=== PATIENT | female | born 1995 | race African-American/Black ===

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

== ENCOUNTER 2017-04-14 19:39 | Emergency (ER) | payer OTHER ==
[~2017-04-14] VITALS: Ht 157.5 cm; Wt 58.6 kg
[~2017-04-14 19:39] MED LIST changes: +IBUP1TAB7 PO; -IBUP800T23 PO; +MOME17I EACH NARE
[2017-04-14 19:40] VITALS: BP 113/58; PULSE 93; RESP 18; TEMP 99.1; O2SAT 99
--- NOTE | 2017-04-14 20:05 | PD ---
HPI Chief Complaint: Skin Problem Time Seen by Provider: 19:57 Travel History International Travel<30 days: No Contact w/Intl Traveler<30days: No Traveled to known affect area: No History of Present Illness HPI 20-year-old female presents to the emergency department with a generalized rash for the last 2-3 days, with worsening. Denies fever, vomiting. Rash is itchy and painful. Denies new detergents, soaps, lotions, perfumes, foods, medications, environmental exposures. Denies airway edema, shortness of breath , difficulty breathing. Symptoms are mild in severity. No one else with similar symptoms. Has not taken any medication return treatment to alleviate her symptoms. No known aggravating or relieving factors. No known allergies. Denies significant past medical history. No primary care provider. Has no other medical complaints. No other modifying factors or associated signs and symptoms. PFSH Past Medical History Hx Anticoagulant Therapy: No Cardiovascular Problems: No Chemotherapy: No Cerebrovascular Accident: No Diabetes: No Diminished Hearing: No Respiratory: No ?: Not LMP: 03/29/2017 Past Surgical History Hysterectomy: No Social History Alcohol Use: No Tobacco Use: No Substance Use: No Allergies-Medications (Allergen,Severity, Reaction): Coded Allergies: No Known Allergies (Unverified , 06/17/16) Reported Meds & Prescriptions Reported Meds & Active Scripts Active Ibuprofen 800 Mg Tab 800 Mg PO Q8H PRN Bactrim DS (Sulfamethoxazole-Trimethoprim) 800-160 Mg Tab 1 Tab PO BID 10 Days Deltasone (Prednisone) 20 Mg Tab 40 Mg PO DAILY 4 Days start 04/15/2017 Nasonex Nasal [place] (Mometasone Furoate) 50 Mcg/Act Naspr 2 [place] EACH NARE DAILY PRN Ibuprofen 800 Mg Tab 800 Mg PO Q6HR PRN Review of Systems Except as stated in HPI: all other systems reviewed are Neg Physical Exam Narrative GENERAL: Well-nourished, well-developed black female patient, in no acute distress; afebrile, nontoxic-appearing SKIN: Warm and dry. Generalized large and small areas of maculopapular rash to back, abdomen, bilateral upper extremity, bilateral lower extremities. No cellulitic process noted. HEAD: Atraumatic. Normocephalic. EYES: Pupils equal and round. No scleral icterus. No injection or drainage. ENT: Mucosa pink and moist. No erythema or exudates. No uvular edema. No uvular , palatal, or tonsillar deviation. Airway patent. EARS: Bilateral pinnae and external canals appear within normal limits. NECK: Trachea midline. No lymphadenopathy. CARDIOVASCULAR: Regular rate RESPIRATORY: No accessory muscle use. No audible wheezing or stridor. GASTROINTESTINAL: Flat. MUSCULOSKELETAL: No obvious deformities. No clubbing. No cyanosis. No edema. NEUROLOGICAL: Awake and alert. Oriented 3. No obvious cranial nerve deficits. Motor grossly within normal limits. Normal speech. Moves all extremities. 5/5 strength to all extremities. PSYCHIATRIC: Appropriate mood and affect; insight and judgment normal. Data Data Last Documented VS Vital Signs Date Time Temp Pulse Resp B/P (MAP) Pulse Ox O2 Delivery O2 Flow Rate FiO2 04/14/17 20:14 04/14/17 19:40 99.1 93 18 99 Room Air Orders Orders Prednisone (Deltasone) (04/14/17 20:15) Ibuprofen (Motrin) (04/14/17 20:15) Ed Discharge Order (04/14/17 20:08) [facility] Medical Decision Making Medical Screen Exam Complete: Yes Emergency Medical Condition: Yes Medical Record Reviewed: Yes Differential Diagnosis Contact dermatitis, bedbugs, hives, nonspecific rash Narrative Course 21-year-old female with rash and nonspecific skin eruption. Patient is afebrile and nontoxic-appearing. Denies fever, vomiting. Denies airway edema, difficulty breathing, shortness of breath. Rash is itchy and painful. There is an area to the right forearm which appears with possible infection. Deltasone and ibuprofen administered in the ER. Deltasone, ibuprofen, Bactrim prescribed for home. Instructed patient to take Benadryl as directed and as needed for rash/itching. Patient to follow-up with dermatology. Instructed patient to follow up with primary care provider. Patient verbalizes understanding and agreement with treatment plan. Patient is medically cleared and stable for discharge. Discussed reasons to return to the emergency department. Patient agrees with treatment plan. The patients vital signs are stable and the patient is stable for outpatient follow-up and treatment. Patient discharged home, stable and in no acute distress. Diagnosis Primary Impression: Rash and nonspecific skin eruption Referrals: [facility] Isotope Technician Primary Care Physician Patient Instructions: Acute Rash (ED), Bed Bugs (ED), General Instructions, Insect Bite or Sting (ED) Additional Instructions: Antibiotics as prescribed Take oral steroids as prescribed [id number] topicals to reduce itch Benadryl as directed and as needed to reduce itch Follow-up with your primary care provider Follow-up with dermatology Return to the emergency department immediately with worsening of symptoms Med/Other Pt SpecificInfo: Prescription(s) given Scripts Ibuprofen (Ibuprofen) 800 Mg Tab 800 MG PO Q8H Y for PAIN SCALE 1 TO 10, #20 TAB 0 Refills Prov: Tayolr Lemus 04/14/17 Sulfamethoxazole-Trimethoprim (Bactrim DS) 800-160 Mg Tab 1 TAB PO BID for Infection for 10 Days, #20 TAB 0 Refills Prov: Taylor Lemus 04/14/17 Prednisone (Deltasone) 20 Mg Tab 40 MG PO DAILY for 4 Days, #8 TAB 0 Refills start 04/15/2017 Prov: Taylor Lemus 04/14/17 Disposition: 01 DISCHARGE HOME Condition: Stable Taylor Lemus Apr 14, 2017 20:05
[2017-04-14] MEDS ORDERED: BACT800T5 PO (20:07)
[2017-04-14] MEDS ORDERED: PRED-503 PO (20:07)
[2017-04-14] MEDS ORDERED: IBUP1TAB7 PO (20:07)
[2017-04-14] MEDS ORDERED: predniSONE 20 MG TAB PO ONE (20:15)
[2017-04-14] MEDS ORDERED: IBUPROFEN 800 MG TAB PO ONE (20:15)
== END 2017-04-14 20:21 | disposition home or self-care (01) ==
LOC: NEPK 19:39
DX: R21 Rash and other nonspecific skin eruption (principal)
CPT/HCPCS: 99284; J7512

== ENCOUNTER 2017-05-10 19:48 | Emergency (ER) | payer OTHER ==
[~2017-05-10 19:48] MED LIST changes: +BACT800T5 PO; +PRED-503 PO
[2017-05-10 19:50] VITALS: BP 148/74; PULSE 82; RESP 16; TEMP 98.5; O2SAT 100
--- NOTE | 2017-05-10 20:59 | PD ---
HPI Chief Complaint: Musculoskeletal Complaint Time Seen by Provider: 20:44 Travel History International Travel<30 days: No Contact w/Intl Traveler<30days: No Traveled to known affect area: No History of Present Illness HPI 21-year-old black female presents from her department with complaints of bilateral hand pain as well as foot pain. Patient states that she's been having pain now for the past week. It seemed to have started in both of her little fingers and palms. It is now encompassed both of her hands. She states the pain is worse when she bends and moves. She has also had some intermittent pain in both feet. She denies any trauma. No recent illness. No fever chills. She does complain some tingling. No sensory loss. She been using Biofreeze with some temporary relief. She states that ibuprofen and Tylenol does not seem to help. Patient reports a family history of arthritis. Was recently treated approximately one month ago by a manometer technician for a rash. No other recent illnesses . PFSH Past Medical History Medical History: Denies Significant Hx Hx Anticoagulant Therapy: No Cardiovascular Problems: No Chemotherapy: No Cerebrovascular Accident: No Diabetes: No Diminished Hearing: No Respiratory: No Immunizations Current: Yes Tetanus Vaccination: < 5 Years Influenza Vaccination: Yes ?: Unknown LMP: 04/29/17 : 0 Past Surgical History Hysterectomy: No Other Surgery: Yes (BIOPSY RIGHT BREAST) Social History Alcohol Use: No Tobacco Use: No Substance Use: No Allergies-Medications (Allergen,Severity, Reaction): Coded Allergies: No Known Allergies (Unverified , 06/17/16) Reported Meds & Prescriptions Reported Meds & Active Scripts Active Ibuprofen 800 Mg Tab 800 Mg PO Q6HR PRN Review of Systems Except as stated in HPI: all other systems reviewed are Neg Physical Exam Narrative GENERAL: This is a well-nourished, well-developed patient, in no apparent distress. SKIN: No rashes, ecchymoses or lesions. Warm and dry. HEAD: Atraumatic. Normocephalic. EYES: PERRL, EOMI, no discharge or injection. No scleral icterus. EARS: Clear NOSE: Nasal turbinates appear normal. THROAT: Mucosa pink and moist. Airway patent. NECK: Trachea midline. supple, moves head freely. LUNGS: Clear to auscultation. CV: Regular in rhythm. ABDOMEN: Soft nontender. EXT: No clubbing cyanosis or edema. I see no obvious deformities. She is able to extend and flex her finger freely. There is no edema, erythema or warmth. The skin is intact. Nail beds are intact and normal-appearing. There is no acute sensory loss. She complains of pain with movement. She has intact median /ulnar/radial nerves. Patient's hands and feet appear unremarkable. Data Data Last Documented VS Vital Signs Date Time Temp Pulse Resp B/P (MAP) Pulse Ox O2 Delivery O2 Flow Rate FiO2 05/10/17 19:50 98.5 82 16 148/74 (98) 100 Room Air Orders Orders Complete Blood Count With Diff (05/10/17 20:49) Basic Metabolic Panel (Bmp) (05/10/17 20:49) [place] Sedimentation Rate (05/10/17 20:49) Labs Laboratory Tests Test 05/10/17 21:00 White Blood Count 7.5 TH/MM3 Red Blood Count 3.99 MIL/MM3 Hemoglobin 12.0 GM/DL Hematocrit 35.0 % Mean Corpuscular Volume 87.6 FL Mean Corpuscular Hemoglobin 30.1 PG Mean Corpuscular Hemoglobin Concent 34.4 % Red Cell Distribution Width 14.4 % Platelet Count 352 TH/MM3 Mean Platelet Volume 7.1 FL Neutrophils (%) (Auto) 44.2 % Lymphocytes (%) (Auto) 43.1 % Monocytes (%) (Auto) 8.3 % Eosinophils (%) (Auto) 3.0 % Basophils (%) (Auto) 1.4 % Neutrophils # (Auto) 3.3 TH/MM3 Lymphocytes # (Auto) 3.3 TH/MM3 Monocytes # (Auto) 0.6 TH/MM3 Eosinophils # (Auto) 0.2 TH/MM3 Basophils # (Auto) 0.1 TH/MM3 CBC Comment DIFF FINAL Differential Comment Erythrocyte Sedimentation Rate 22 mm/hr Blood Urea Nitrogen 14 MG/DL Creatinine 0.81 MG/DL Random Glucose 94 MG/DL Calcium Level 8.8 MG/DL Sodium Level 141 MEQ/L Potassium Level 3.8 MEQ/L Chloride Level 107 MEQ/L Carbon Dioxide Level 26.3 MEQ/L Anion Gap 8 MEQ/L Estimat Glomerular Filtration Rate 110 ML/MIN MDM Medical Decision Making Medical Screen Exam Complete: Yes Emergency Medical Condition: Yes Medical Record Reviewed: Yes Interpretation(s) Laboratory Tests Test 05/10/17 21:00 White Blood Count 7.5 TH/MM3 Red Blood Count 3.99 MIL/MM3 Hemoglobin 12.0 GM/DL Hematocrit 35.0 % Mean Corpuscular Volume 87.6 FL Mean Corpuscular Hemoglobin 30.1 PG Mean Corpuscular Hemoglobin Concent 34.4 % Red Cell Distribution Width 14.4 % Platelet Count 352 TH/MM3 Mean Platelet Volume 7.1 FL Neutrophils (%) (Auto) 44.2 % Lymphocytes (%) (Auto) 43.1 % Monocytes (%) (Auto) 8.3 % Eosinophils (%) (Auto) 3.0 % Basophils (%) (Auto) 1.4 % Neutrophils # (Auto) 3.3 TH/MM3 Lymphocytes # (Auto) 3.3 TH/MM3 Monocytes # (Auto) 0.6 TH/MM3 Eosinophils # (Auto) 0.2 TH/MM3 Basophils # (Auto) 0.1 TH/MM3 CBC Comment DIFF FINAL Differential Comment Erythrocyte Sedimentation Rate 22 mm/hr Blood Urea Nitrogen 14 MG/DL Creatinine 0.81 MG/DL Random Glucose 94 MG/DL Calcium Level 8.8 MG/DL Sodium Level 141 MEQ/L Potassium Level 3.8 MEQ/L Chloride Level 107 MEQ/L Carbon Dioxide Level 26.3 MEQ/L Anion Gap 8 MEQ/L Estimat Glomerular Filtration Rate 110 ML/MIN Differential Diagnosis Differential diagnosis: Osteoarthritis, autoimmune arthritis, inflammatory arthritis, electrolyte abnormality, pituitary disease Narrative Course Patient is resting comfortable. Patient's sedimentation rate is 22. CBC and chemistry unremarkable. Patient is informed of her laboratory findings. Etiology of her complaint of arthralgias are not clear. She'll be given prescription for prednisone and advised to follow-up with the clinic at school. Patient is given prednisone 40 mg by mouth. This is arthralgias Diagnosis Primary Impression: Arthralgia Qualified Codes: M25.50 - Pain in unspecified joint Patient Instructions: General Instructions Additional Instructions: Rest. Elevation. Prednisone. They also take additional Tylenol or ibuprofen for pain. Follow-up with the clinic at school or next 1-2 days for recheck. Consider follow-up with a paper sorter. Return to the ER for emergencies. Med/Other Pt SpecificInfo: Prescription(s) given Disposition: 01 DISCHARGE HOME Condition: Stable Stan Madrid May 10, 2017 20:59
[2017-05-10 21:30] LABS: AUTOMATED NEUTROPHIL # 3.3 TH/MM3 (1.8-7.7); BASOPHIL # 0.1 TH/MM3 (0-0.2); BASOPHIL % 1.4 % (0.0-2.0); EOSINOPHIL # 0.2 TH/MM3 (0-0.4); LYMPH % 43.1 % (9.0-44.0); LYMPHOCYTE # 3.3 TH/MM3 (1.0-4.8); MEAN CELL VOLUME 87.6 FL (80.0-100.0); MEAN CORPUSCULAR HEMOGLOBIN 30.1 PG (27.0-34.0); MEAN CORPUSCULAR HGB CONC 34.4 % (32.0-36.0); MEAN PLATELET VOLUME 7.1 FL (7.0-11.0); MONO % 8.3 % (0.0-8.0); MONOCYTE # 0.6 TH/MM3 (0-0.9); NEUT % 44.2 % (16.0-70.0); PLATELET COUNT 352 TH/MM3 (150-450); RED BLOOD COUNT 3.99 MIL/MM3 (4.00-5.30); RED CELL DISTRIBUTION WIDTH 14.4 % (11.6-17.2); WHITE BLOOD COUNT 7.5 TH/MM3 (4.0-11.0)
[2017-05-10 21:53] LABS: BICARBONATE 26.3 MEQ/L (21.0-32.0); CALCIUM 8.8 MG/DL (8.5-10.1); CREATININE 0.81 MG/DL (0.50-1.00)
[2017-05-10] MEDS ORDERED: PRED-503 PO (22:38)
[2017-05-10] MEDS ORDERED: predniSONE 20 MG TAB PO ONE (22:45)
== END 2017-05-10 22:52 | disposition home or self-care (01) ==
LOC: NEPD 19:48
DX: M25.50 Pain in unspecified joint (principal)
CPT/HCPCS: 80048; 85025; 85652; 99283; J7512

== ENCOUNTER 2017-07-13 21:26 | Emergency (ER) | payer OTHER ==
[~2017-07-13] VITALS: Ht 157.5 cm; Wt 55.5 kg
[~2017-07-13 21:26] MED LIST changes: -BACT800T5 PO; -MOME17I EACH NARE
[2017-07-13 21:46] VITALS: BP 108/56; PULSE 77; RESP 18; TEMP 98.5; O2SAT 100
--- NOTE | 2017-07-14 16:55 | PD ---
Physical Exam Date Seen by Provider: Jul 13, 2017 Time Seen by Provider: 21:46 Narrative 21-year-old female presents to the emergency department for evaluation along to her right breast that she noticed today. Patient denies erythema or warmth. No fevers. Current pain is 9/10. Moderate severity. Data Data Last Documented VS Vital Signs Date Time Temp Pulse Resp B/P (MAP) Pulse Ox O2 Delivery O2 Flow Rate FiO2 07/13/17 21:46 98.5 77 18 108/56 (73) 100 MDM Supervised Visit with KAYLYNN: No Narrative Course 21-year-old female presents to the emergency department for evaluation a lot to her breast that she first noticed today. Patient is initially seen in triage. She left AGAINST MEDICAL ADVICE before she could be moved to medical bed. Diagnosis Primary Impression: Left against medical advice Patient Instructions: General Instructions Departure Forms: Tests/Procedures Disposition: 07 AGAINST MEDICAL ADVICE Wendy Manzanares Jul 14, 2017 16:55
== END 2017-07-14 00:18 | disposition left against medical advice (07) ==
LOC: NED 21:26
DX: N64.4 Mastodynia (principal)
CPT/HCPCS: 99281

== ENCOUNTER 2017-10-14 14:19 | Inpatient (IN) ==
[2017-10-14] MEDS ORDERED: Aluminum/Magnesium/Simethacone Susp 30 ML UDC PO PRN (16:59)
[2017-10-14] MEDS ORDERED: LORazepam 1 MG Tablet PO PRN (16:59)
[2017-10-14] MEDS ORDERED: Ibuprofen 600 MG Tablet PO PRN (16:59)
[2017-10-15 06:10] VITALS: BP 111/61; PULSE 88; RESP 18; TEMP 96.8; O2SAT 96
[2017-10-15 11:22] LABS: Anion Gap 13 meq/L (5-15); Blood Urea Nitrogen 8 mg/dL (7-18); Calcium 9.1 mg/dL (8.5-10.1); Carbon Dioxide 24.5 meq/L (21.0-32.0); Chloride 107 meq/L (98-107); Glomerular Filtration Rate Greater Than 89 mL/min (>89); Glucose,Random 74 mg/dL (74-106); Potassium 3.5 meq/L (3.5-5.1); Sodium 144 meq/L (136-145)
[2017-10-15 11:32] LABS: Chol/HDL Ratio 2.49 Ratio; Cholesterol 136 mg/dL (120-200); HDL Cholesterol 54.5 mg/dL (40.0-60.0); LDL Cholesterol,Calculated 70 mg/dL (0-99); Thyroid Stimulating Hormone 0.812 uIU/mL (0.358-3.740); Triglycerides 56 mg/dL (42-150)
--- NOTE | 2017-10-15 12:51 | P.HPPSY ---
Provisional Diagnosis Admission Date: October 14, 2017 15:31 [place].: Adjustment disorder with mixed disturbances of emotion and conduct Competence Certification of Person's Competence To Provide Express and Informed Consent I have personally examined Magnolia Strong, a person being served at [facility] on, October 15, 2017 1242. Express and informed consent means consent voluntarily given in writing, by a competent person, after sufficient explanation and disclosure of the subject matter involved to enable the person to make a knowing and willful decision without any element of force, fraud, deceit, duress, or other form of constraint or coercion. This person is 18 years of age or older, is not now known to be incompetent to consent to treatment with a guardian advocate, and does not have a health care surrogate or proxy currently making medical treatment decisions. I have found this person to be one of the following: [xxxxx] Competent to provide express and informed consent, as defined above, for voluntary admission to this facility and is competent to provide express and informed consent for treatment. He/she has the consistent capacity to make well reasoned, willful, and knowing decisions concerning his or her medical or mental health treatment. The person fully and consistently understands the purpose of the admission for examination/placement and is fully capable of personally exercising all rights assured under [place] Incompetent to provide express and informed consent to voluntary admission, and this is incompetent to provide express and informed consent to treatment. The person must be transferred to involuntary status and a petition for a guardian advocate filed with the Circuit Court. [] Refusing to provide express and informed consent to voluntary admission but is competent to provide express and informed consent for treatment. The person must be discharged or transferred to involuntary status. Form shall be completed within 24 hours of a person's arrival at the receiving facility and filed in the clinical record of each person: 1. Admitted on a voluntary basis 2. Permitted to provide express and informed consent to his/her own treatment 3. Allowed to transfer from involuntary to voluntary status 4. Prior to permitting a person to consent to his or her own treatment after having been previously found incompetent to consent to treatment. History of Present Illness Capacity: Has capacity History of Present Illness: Patient is a 22-year-old -[place] female initially brought to [facility] under Parmar act signed by an illegible signature dated 10/12/2017 stating took an overdose of Tylenol patient was admitted to that hospital treated for her overdose of Tylenol and transferred here under the Parmar act. 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 It appears there was some activity on social media initiated by her roommate that upset the patient. She then is driving home going [place] a bridge [place] car stalled she had a local with encouraged them to be thinking "when getting her more upset that he did not stick with Tylenol she denies that this was a suicide attempt. Patient denies any prior psychiatric contact hospitalization psychotropic medications denies any prior suicidal homicidal ideation intent or plan denies any prior psychotic episodes. She minimizes any alcohol use and significant denies any other substance use. She states she lives alternative lifestyle that her parents are aware of this may been some issues with that and all of these machinations. Patient denies any prior physical and/or sexual abuse. Denies any family history of mental illness or addiction. Patient's sister is in town is willing to take responsibility for the patient. Patient wishes to be discharged to go with her sister back home to [place] for the rest of the summer. At this time I feel patient no longer meets Parmar criteria is able contract to do no harm. Thus I will lift the Parmar act patient to be discharged herself, no Rx by me, follow-up through her PCP or if she remains at the 3:00 went through the counseling service - Inpatient Certification I certify that the inpatient services were ordered in accordance with Medicare regulations governing the order. This includes certification that hospital inpatient services are reasonable and necessary and in the case of services not specified as inpatient-only under 42 CFR 419.22(n), that they are appropriately provided as inpatient services in accordance to with the 2-midnight benchmark under 43 CFR 412.3(e) I certify that inpatient psychiatric hospital services are medically necessary. Evaluation and treatment and/or diagnostic testing are expected to improve the patient's condition. The patient needs on a daily basis, active treatment furnished directly by or requiring the supervision of inpatient psychiatric facility personnel. Estimated Total Length of Stay (Days): 1 Plans for Post Hospital Care: Home (Patient to be discharged to her sister to return home to [place]) Review of Systems All other systems reviewed negative except as stated in HPI [facility] - History History Provided By: Patient - Medical History Medical History: Medical History (Last Updated 10/14/17 @ 17:05 by Dia Klein RN) Scoliosis - Surgical History Surgical History: Surgical History (Last Updated 10/14/17 @ 17:05 by Dia Klein RN) H/O breast biopsy - Tobacco History Second Hand Smoke Exposure: No Smoking Status: Never smoker - Alcohol History How Often Do You Have a Drink Containing Alcohol: 2 to 4 times a month - Substance Use History Substance History: No History of Abuse - Travel History Recent Travel in the [place] Within the Last 8 Weeks: No Recent Travel Out of the Country Within the Last 8 Weeks: No - Immunization History Tetanus Immunization: <5 Years Hx Influenza Vaccine This Season: Yes Quality Measures - Psychiatric History Psychological trauma history: Patient denies Violence risk to others in the last 6 months: Low Violence risk to self in the last 6 months: Low - Substance Abuse History Drug or alcohol use in the past 12 months: Patient nodules small use of alcohol infrequently - Patient Strengths Patient's strengths (minimum of 2): Patient verbal able access healthcare has supportive family Medications and Allergies Active Medications: Active Medications Al Hydrox/Mg Hydrox/Simethicone (Mag-Al Plus Susp Liq) 30 ml PO Q6H PRN PRN Reason: DYSPEPSIA Al Hydroxide/Mg Hydroxide (Milk Of Magnesia Liq) 30 ml PO Q12H PRN PRN Reason: Mild Constipation Diphenhydramine HCl (Benadryl) 50 mg PO HS PRN PRN Reason: INSOMNIA Lorazepam (Ativan) 1 mg PO Q6H PRN PRN Reason: MODERATE TO SEVERE ANXIETY Allergies Allergy/AdvReac Type Severity Reaction Status Date / Time No Known Allergies Allergy Uncoded 06/17/16 11:47 Results - Labs CBC & Chem 7: 10/15/17 09:45 Labs: Laboratory Results - last 24 hr 10/15/17 09:45 Sodium 144 Potassium 3.5 Chloride 107 Carbon Dioxide 24.5 Anion Gap 13 BUN 8 Creatinine 0.84 Estimated GFR Greater than 89 Random Glucose 74 Calcium 9.1 Triglycerides 56 Cholesterol 136 LDL Cholesterol, Calc 70 HDL Cholesterol 54.5 Cholesterol/HDL Ratio 2.49 TSH 0.812 Exam Vital signs: Vital Signs 10/14/17 16:49 10/15/17 06:09 Temperature 96.8 F L Pulse Rate 81 88 Respiratory Rate 20 18 Blood Pressure 136/67 111/61 Pulse Oximetry 98 96 Intake & Output 10/14/17 10/15/17 10/15/17 18:59 06:59 18:59 Weight 58.967 kg Other: Weight On Admission 58.967 kg Narrative: Patient seen in her room with staff as mentioned above she is in no acute distress no complaints of chest pain, no respiratory difficulty, no complaints of abdominal pain, patient moving all 4 extremities without difficulty. No abnormal motor movements noted Mental Status Examination Appearance: Appropriate (Clean and neat) Consciousness: Alert Orientation: x4 Motor Activity: Normal gait Speech: Unremarkable Language: Adequate Fund of Knowledge: Adequate Attention and Concentration: Adequate Memory: Unremarkable Mood: Other (Euthymic) Affect: Other (Good range and intensity) Thought Process & Associations: Intact Thought Content: Appropriate Hallucination Type: None Delusion Type: None Suicidal Ideation: No Suicidal Plan: No Suicidal Intention: No Homicidal Ideation: No Homicidal Plan: No Homicidal Intention: No Insight: Adequate Judgment: Impulsive Assessment and Plan - Plan Plan: Estimated LOS: [] days At this time patient does not meet Parmar criteria will lift Parmar act. Patient denies suicidality homicidality voice or visions, is able contract to do no harm , patient's sister is here willing to take patient back home to [place] to be with her family. Thus patient to be discharged to her family no Rx by me follow -up services back in the home town or through counseling with equipment if she remains local Justification for Continued Inpatient Stay: Patient to be discharged today Discharge Planning: Discharge today and his sister to return to her family home in [place] Request Healthcare Surrogate/Guardian Advocate?: No
--- NOTE | 2017-10-15 12:56 | P.DSPSY ---
Psychiatry Discharge Summary Inpatient Psychiatric care?: Yes Advance Directives: No Mental Health Advance Directive: No Health Care Proxy: No - Admission Admission Date: October 14, 2017 15:31 - Admission Diagnosis (1) Adjustment disorder with mixed disturbance of emotions and conduct Code(s): F43.25 - Adjustment disorder with mixed disturbance of emotions and conduct Brief History: Patient is a 22-year-old -[place] female initially brought to [facility] under Parmar act signed by an illegible signature dated 10/12/2017 stating took an overdose of Tylenol patient was admitted to that hospital treated for her overdose of Tylenol and transferred here under the Parmar act. 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 It appears there was some activity on social media initiated by her roommate that upset the patient. She then is driving home going [place] a bridge [place] car stalled she had a local with encouraged them to be thinking "when getting her more upset that he did not stick with Tylenol she denies that this was a suicide attempt. Patient denies any prior psychiatric contact hospitalization psychotropic medications denies any prior suicidal homicidal ideation intent or plan denies any prior psychotic episodes. She minimizes any alcohol use and significant denies any other substance use. She states she lives alternative lifestyle that her parents are aware of this may been some issues with that and all of these machinations. Patient denies any prior physical and/or sexual abuse. Denies any family history of mental illness or addiction. Patient's sister is in town is willing to take responsibility for the patient. Patient wishes to be discharged to go with her sister back home to [place] for the rest of the summer. At this time I feel patient no longer meets Parmar criteria is able contract to do no harm. Thus I will lift the Parmar act patient to be discharged herself, no Rx by me, follow-up through her PCP or if she remains at the 3:00 went through the counseling service Tobacco Use In Past 30 Days: No How Often Do You Have a Drink Containing Alcohol: 2 to 4 times a month Hospital Course: See above dictation under brief history. Patient does not meet criteria for further psychiatric hospitalization I will lift Parmar act. Patient denies suicidality homicidality voice or visions, is able contract to do no harm, is safe to discharge to picked up by her sister then to return to their home in [place] - Discharge Discharge Date: 10/15/17 - Discharge Diagnosis (1) Adjustment disorder with mixed disturbance of emotions and conduct Code(s): F43.25 - Adjustment disorder with mixed disturbance of emotions and conduct Status: Acute Discharge Disposition: Home - Discharge Instructions Discharge Diet: Regular Diet Activities You Can Perform: Regular- No Restrictions - Discharge Time > 30 minutes Mental Status Examination Appearance: Appropriate (Clean and neat) Consciousness: Alert Orientation: x4 Motor Activity: Normal gait Speech: Unremarkable Language: Adequate Fund of Knowledge: Adequate Attention and Concentration: Adequate Memory: Unremarkable Mood: Other (Euthymic) Affect: Other (Good range and intensity) Thought Process & Associations: Intact Thought Content: Appropriate Hallucination Type: None Delusion Type: None Suicidal Ideation: No Suicidal Plan: No Suicidal Intention: No Homicidal Ideation: No Homicidal Plan: No Homicidal Intention: No Insight: Adequate Judgment: Impulsive Discharge/Advance Care Plan - Results Vital Signs: Last Vital Signs Temp 96.8 F L 10/15/17 06:09 Pulse 88 10/15/17 06:09 Resp 18 10/15/17 06:09 BP 111/61 10/15/17 06:09 Pulse Ox 96 10/15/17 06:09 Lab Results: Abnormal Lab Results 10/15/17 09:45 Sodium 144 Potassium 3.5 Chloride 107 Carbon Dioxide 24.5 Anion Gap 13 BUN 8 Creatinine 0.84 Estimated GFR Greater than 89 Random Glucose 74 Calcium 9.1 Triglycerides 56 Cholesterol 136 LDL Cholesterol, Calc 70 HDL Cholesterol 54.5 Cholesterol/HDL Ratio 2.49 TSH 0.812 Laboratory Results Triglycerides 56 mg/dL (42-150) 10/15/17 09:45 Cholesterol 136 mg/dL (120-200) 10/15/17 09:45 LDL Cholesterol, Calc 70 mg/dL (0-99) 10/15/17 09:45 HDL Cholesterol 54.5 mg/dL (40.0-60.0) 10/15/17 09:45 TSH 0.812 uIU/mL (0.358-3.740) 10/15/17 09:45 Summary of Procedures: None done Pending Results: None - Medications Number of antipsychotic medications at discharge: 0 - Discharge Care Plan Goals to Promote Your Health: * To prevent worsening of your condition and complications * To maintain your health at the optimal level Directions to Meet Your Goals: Take your medications as prescribed Follow your dietary instruction Follow activity as directed Keep your appointments as scheduled Take your immunizations and boosters as scheduled If your symptoms worsen call your PCP, if no PCP go to Urgent Care Center or Emergency Room For 19/10 questions related to your inpatient stay or results of tests pending at discharge, please contact Dr. Luke Frederick MD at Smoking is Dangerous to Your Health. Avoid second hand smoking
[2017-10-15 16:05] LABS: Hemoglobin A1c 5.5 % (4.3-6.0)
== END 2017-10-15 13:25 | disposition home or self-care (01) ==
LOC: H260 15:31
PROVIDERS: ADMIT Psychiatry & Neurology Psychiatry; ATTEND Psychiatry & Neurology Psychiatry
DX: M41.9 Scoliosis, unspecified; F43.25 Adjustment disorder with mixed disturbance of emotions and conduct